=== PATIENT | female | born 1985 | race African-American/Black ===

== ENCOUNTER → 2022-10-02 | Outpatient (CLI) | payer OTHER, SELFPAY ==
[2022-10-02 15:16] LABS: hCG Titer Quant., Serum < 1 mIU/mL (1-3)
[2022-10-02 15:22] LABS: Estradiol 27.4 pg/mL; Luteinizing Hormone 4.6 mIU/mL; Thyroid Stim Hormone (TSH) 1.13 uIU/mL (0.358-3.74)
[2022-10-02 16:49] LABS: Progesterone Level < 0.21 ng/mL (See Comment)
== END | disposition home or self-care (01) ==
LOC: WOBLAB 13:48
PROVIDERS: Visit Provider Obstetrics & Gynecology Reproductive Endocrinology
DX: Z31.83 Encounter for assisted reproductive fertility procedure cycle (principal)
CPT/HCPCS: 36415; 82670; 83001; 83002; 84144; 84443; 84702

== ENCOUNTER → 2022-10-07 | Outpatient (CLI) | payer OTHER, SELFPAY ==
[2022-10-07 10:55] LABS: Estradiol 597.7 pg/mL; Luteinizing Hormone 2.2 mIU/mL; Progesterone Level 0.36 ng/mL (See Comment)
== END | disposition home or self-care (01) ==
PROVIDERS: Student in an Organized Health Care Education/Training Program; Visit Provider Obstetrics & Gynecology Reproductive Endocrinology
DX: Z31.83 Encounter for assisted reproductive fertility procedure cycle (principal)
CPT/HCPCS: 36415; 82670; 83002; 84144

== ENCOUNTER → 2022-10-09 | Outpatient (CLI) | payer OTHER, SELFPAY ==
[2022-10-09 11:10] LABS: Progesterone Level 0.69 ng/mL (See Comment)
[2022-10-09 11:26] LABS: Luteinizing Hormone 1.2 mIU/mL
== END | disposition home or self-care (01) ==
PROVIDERS: Visit Provider Obstetrics & Gynecology Reproductive Endocrinology
DX: Z31.83 Encounter for assisted reproductive fertility procedure cycle (principal)
CPT/HCPCS: 36415; 82670; 83002; 84144

== ENCOUNTER → 2022-10-11 | Outpatient (CLI) | payer OTHER, SELFPAY ==
[2022-10-11 11:16] LABS: Progesterone Level 1.51 ng/mL (See Comment)
[2022-10-11 12:48] LABS: Luteinizing Hormone 0.3 mIU/mL
== END | disposition home or self-care (01) ==
LOC: WOBLAB 09:49
PROVIDERS: Visit Provider Obstetrics & Gynecology Reproductive Endocrinology
DX: Z31.83 Encounter for assisted reproductive fertility procedure cycle (principal)
CPT/HCPCS: 36415; 82670; 83002; 84144

== ENCOUNTER → 2022-12-03 | Outpatient (CLI) | payer OTHER, SELFPAY ==
[2022-12-03 12:32] LABS: Progesterone Level 0.24 ng/mL (See Comment)
[2022-12-03 12:41] LABS: hCG Titer Quant., Serum < 1 mIU/mL (1-3)
[2022-12-03 13:51] LABS: Thyroid Stim Hormone (TSH) 1.32 uIU/mL (0.358-3.74)
[2022-12-04 09:57] LABS: Follicle Stimulating Hormone 6.8 mIU/mL; Luteinizing Hormone 3.9 mIU/mL
== END | disposition home or self-care (01) ==
LOC: WOBLAB 11:13
PROVIDERS: Visit Provider Obstetrics & Gynecology Reproductive Endocrinology
DX: Z31.83 Encounter for assisted reproductive fertility procedure cycle (principal); Z31.49 Encounter for other procreative investigation and testing
CPT/HCPCS: 36415; 82670; 83001; 83002; 84144; 84443; 84702

== ENCOUNTER → 2022-12-10 | Outpatient (CLI) | payer OTHER, SELFPAY ==
[2022-12-10 11:32] LABS: Luteinizing Hormone 15.3 mIU/mL
[2022-12-10 11:41] LABS: Progesterone Level < 0.21 ng/mL (See Comment)
== END | disposition home or self-care (01) ==
LOC: WOBLAB 10:39
PROVIDERS: Visit Provider Obstetrics & Gynecology Reproductive Endocrinology
DX: Z31.83 Encounter for assisted reproductive fertility procedure cycle (principal)
CPT/HCPCS: 36415; 82670; 83002; 84144